=== PATIENT | male | born 1990 | race Caucasian/White ===

== ENCOUNTER 2017-01-19 02:25 | Emergency (ER) | payer OTHER ==
[2017-01-19 02:33] VITALS: TEMP 99.7
[2017-01-19] MEDS ORDERED: ONDANSETRON 4 MG/2 ML VIAL IVP STA (02:57)
[2017-01-19 03:29] LABS: Basophils # (A) 0.1 k/uL (0-0.2); Basophils % (A) 1 %; CH 29.5; CHCM 34.9; Eosinophils # (A) 0.1 k/uL (0-0.7); Eosinophils % (A) 1 %; HCT 47.2 % (39.0-53.0); HGB 16.6 gm/dL (13.0-17.5); Luc # (Auto) 0.16; Luc % (Auto) 2; Lymphocytes % (A) 19 %; MCH 29.8 pg (25.0-35.0); MCHC 35.1 g/dL (31.0-37.0); MCV 84.8 fL (80.0-100.0); Mean Platelet Volume 7.6; Monocytes # (A) 0.4 k/uL (0-1.0); Monocytes % (A) 4 %; Neutrophils # (A) 7.6 k/uL (1.3-7.7); Neutrophils % (A) 73 %; RBC 5.56 m/uL (4.30-5.90); WBC 10.4 k/uL (3.8-10.6); WBC (Perox) 10.72
[2017-01-19] MEDS ORDERED: MORPHINE SULFATE 4 MG/ML SYRINGE IV STA (03:31)
[2017-01-19 03:45] LABS: ALT 68 U/L (21-72); AST 33 U/L (17-59); Alkaline Phosphatase 76 U/L (38-126); Amylase 46 U/L (30-110); Anion Gap 12 mmol/L; Blood Urea Nitrogen 14 mg/dL (9-20); Calcium 9.7 mg/dL (8.4-10.2); Carbon Dioxide 25 mmol/L (22-30); Chloride 104 mmol/L (98-107); Glucose 106 mg/dL (74-99); Non-African American GFR(MDRD) >60 (>60 ml/min/1.73 sqM); Potassium 4.1 mmol/L (3.5-5.1); Sodium 141 mmol/L (137-145); Total Protein 7.2 g/dL (6.3-8.2)
--- NOTE | 2017-01-19 04:21 | CT ---
EXAM: CT Abdomen and Pelvis Without Intravenous Contrast. CLINICAL HISTORY: Reason: Pain TECHNIQUE: Axial computed tomography images of the abdomen and pelvis without intravenous contrast. CTDI is 12 mGy and DLP is 684 mGy-cm. COMPARISON: No relevant prior studies available. FINDINGS: Lower thorax: Minimal atelectasis at the lung bases. ABDOMEN: Liver: Hepatomegaly. Gallbladder and bile ducts: Unremarkable. No calcified stones. No ductal dilation. Pancreas: Unremarkable. No ductal dilation. Spleen: Accessory splenule. Calcified granulomas in the spleen. Adrenals: Unremarkable. No mass. Kidneys and ureters: Unremarkable. No obstructing stones. No hydronephrosis. Stomach and bowel: Low-grade diverticulitis with descending colon/sigmoid diverticulosis, mild bowel wall edema, and trace pericolonic fat stranding. No evidence for perforation or abscess. Appendix: No findings to suggest acute appendicitis. PELVIS: Bladder: Unremarkable. No stones. Reproductive: Unremarkable as visualized. ABDOMEN and PELVIS: Intraperitoneal space: Unremarkable. No free air. No significant fluid collection. Bones/joints: No acute fracture. No dislocation. Soft tissues: Bilateral fat-containing inguinal hernias. Vasculature: Unremarkable. No abdominal aortic aneurysm. Lymph nodes: Unremarkable. No enlarged lymph nodes. IMPRESSION: 1. Low-grade diverticulitis with descending colon/sigmoid diverticulosis, mild bowel wall edema, and trace pericolonic fat stranding. No evidence for perforation or abscess. 2. Hepatomegaly.
[2017-01-19] MEDS ORDERED: metroNIDAZOLE 500 MG TAB PO STA (05:00)
[2017-01-19] MEDS ORDERED: LEVOFLOXACIN 500 MG TAB PO STA (05:00)
--- NOTE | 2017-01-19 05:02 | ED ---
Abdominal Pain HPI - General Chief Complaint: Abdominal Pain Stated Complaint: abd pain Time Seen by Provider: 01/19/17 02:57 Source: patient Mode of arrival: ambulatory Limitations: no limitations - History of Present Illness Initial Comments: This patient is a 26-year-old man who presents to be evaluated for abdominal pain and diarrhea. He notes that his symptoms have been intermittent for up to a couple of months, but they were worse over the past evening. He did have some diarrhea but denied blood or mucus. Complaint: abdominal pain -: week(s) Location: LLQ Radiation: none Migration to: no migration Severity: severe Quality: cramping, aching Consistency: intermittent Improves With: nothing Worsens With: nothing Associated Symptoms: diarrhea - Related Data Previous Rx's Medication Instructions Recorded Ciprofloxacin HCl [Cipro] 500 mg PO Q12HR #14 tablet 01/19/17 Dicyclomine [Bentyl] 20 mg PO QID #15 tablet 01/19/17 metroNIDAZOLE [Flagyl] 500 mg PO TID #21 tab 01/19/17 Allergies Allergy/AdvReac Type Severity Reaction Status Date / Time No Known Allergies Allergy Verified 01/19/17 02:33 Review of Systems ROS Statement: Those systems with pertinent positive or pertinent negative responses have been documented in the HPI. ROS Other: All systems not noted in ROS Statement are negative. Constitutional: Denies: fever, chills Respiratory: Denies: cough, dyspnea Cardiovascular: Denies: chest pain, palpitations, orthopnea, edema Gastrointestinal: Reports: abdominal pain, nausea, diarrhea. Denies: vomiting, constipation, melena, hematochezia Genitourinary: Denies: dysuria, frequency, hematuria Musculoskeletal: Denies: back pain Skin: Denies: rash Neurological: Denies: headache, weakness, numbness Past Medical History Past Medical History: No Reported History History of Any Multi-Drug Resistant Organisms: None Reported Past Surgical History: No Surgical Hx Reported Past Psychological History: No Psychological Hx Reported Smoking Status: Never smoker Past Alcohol Use History: None Reported Past Drug Use History: None Reported General Exam Limitations: no limitations General appearance: alert, in no apparent distress Head exam: Present: atraumatic, normocephalic, normal inspection Eye exam: Present: normal appearance. Absent: scleral icterus, conjunctival injection Neck exam: Present: normal inspection, full ROM Respiratory exam: Present: normal lung sounds bilaterally. Absent: respiratory distress, wheezes, rales, rhonchi, stridor Cardiovascular Exam: Present: regular rate, normal rhythm, normal heart sounds. Absent: systolic murmur, diastolic murmur, rubs, gallop GI/Abdominal exam: Present: soft, tenderness (There is mild left lower quadrant tenderness without rebound or guarding). Absent: distended, guarding, rebound, rigid, normal bowel sounds, mass, bruit, pulsatile mass, hernia Extremities exam: Present: normal inspection, normal capillary refill. Absent: pedal edema, calf tenderness Back exam: Present: normal inspection. Absent: CVA tenderness (R), CVA tenderness (L) Neurological exam: Present: alert Skin exam: Present: warm, dry, intact, normal color. Absent: rash Course Vital Signs 01/19/17 01/19/17 02:30 05:15 Temperature 99.7 F H Pulse Rate 81 82 Respiratory 20 18 Rate Blood Pressure 156/86 141/76 O2 Sat by Pulse 97 97 Oximetry Medical Decision Making - Medical Decision Making Patient is 26-year-old man who has been having some intermittent abdominal pain going on for weeks to months though it has been worse over the past day. Now also having some diarrhea. The patient's workup does reveal what appears to be some diverticulitis. Patient will have course of antibiotics. I did discuss further care and follow-up as well as return parameters. - Lab Data Result diagrams: 01/19/17 03:10 01/19/17 03:10 Lab Results 01/19/17 01/19/17 Range/Units 03:10 03:10 WBC 10.4 (3.8-10.6) k/uL RBC 5.56 (4.30-5.90) m/uL Hgb 16.6 (13.0-17.5) gm/dL Hct 47.2 (39.0-53.0) % MCV 84.8 (80.0-100.0) fL MCH 29.8 (25.0-35.0) pg MCHC 35.1 (31.0-37.0) g/dL RDW 13.0 (11.5-15.5) % Plt Count 217 (150-450) k/uL Neutrophils % 73 % Lymphocytes % 19 % Monocytes % 4 % Eosinophils % 1 % Basophils % 1 % Neutrophils # 7.6 (1.3-7.7) k/uL Lymphocytes # 2.0 (1.0-4.8) k/uL Monocytes # 0.4 (0-1.0) k/uL Eosinophils # 0.1 (0-0.7) k/uL Basophils # 0.1 (0-0.2) k/uL Sodium 141 (137-145) mmol/L Potassium 4.1 (3.5-5.1) mmol/L Chloride 104 (98-107) mmol/L Carbon Dioxide 25 (22-30) mmol/L Anion Gap 12 mmol/L BUN 14 (9-20) mg/dL Creatinine 1.00 (0.66-1.25) mg/dL Est GFR (MDRD) Af Amer >60 (>60 ml/min/1.73 sqM) Est GFR (MDRD) Non-Af >60 (>60 ml/min/1.73 sqM) Glucose 106 H (74-99) mg/dL Calcium 9.7 (8.4-10.2) mg/dL Total Bilirubin 1.0 (0.2-1.3) mg/dL AST 33 (17-59) U/L ALT 68 (21-72) U/L Alkaline Phosphatase 76 (38-126) U/L Total Protein 7.2 (6.3-8.2) g/dL Albumin 4.3 (3.5-5.0) g/dL Amylase 46 (30-110) U/L Lipase 39 (23-300) U/L Disposition Clinical Impression: Diverticulitis Disposition: HOME SELF-CARE Condition: Good Instructions: Diverticulitis (ED) Prescriptions: Ciprofloxacin HCl [Cipro] 500 mg PO Q12HR #14 tablet Dicyclomine [Bentyl] 20 mg PO QID #15 tablet metroNIDAZOLE [Flagyl] 500 mg PO TID #21 tab Referrals: None,Stated [Primary Care Provider] - 1-2 days Sky Staples DO [STAFF PHYSICIAN] - 1-2 days
[2017-01-19 05:16] VITALS: BP 141/76; PULSE 82; RESP 18
== END 2017-01-19 05:15 | disposition home or self-care (01) ==
LOC: EC 02:25
DX: K57.92 Diverticulitis of intestine, part unspecified, without perforation or abscess without bleeding (principal)
CPT/HCPCS: 36415; 80053; 82150; 83690; 85025; 74176; 99284; 96374; 96375; J2270; J2405

== ENCOUNTER 2017-01-29 17:30 | Emergency (ER) | payer OTHER ==
[2017-01-29 17:42] VITALS: TEMP 98.4
[2017-01-29] MEDS ORDERED: metroNIDAZOLE-NS PMX 500 MG in SALINE 1 100ML.BAG IVPB STA (19:25)
[2017-01-29] MEDS ORDERED: MORPHINE SULFATE 4 MG/ML SYRINGE IV STA (19:25)
[2017-01-29] MEDS ORDERED: SODIUM CHLORIDE 0.9% 500 ML IV STA (19:25)
[2017-01-29 20:03] LABS: Basophils % (A) 1 %; CH 29.1; CHCM 34.2; Eosinophils # (A) 0.1 k/uL (0-0.7); Eosinophils % (A) 1 %; HCT 52.5 % (39.0-53.0); HDW 2.88; Luc # (Auto) 0.12; Luc % (Auto) 2; Lymphocytes # (A) 2.1 k/uL (1.0-4.8); Lymphocytes % (A) 29 %; MCH 29.3 pg (25.0-35.0); MCHC 34.2 g/dL (31.0-37.0); MCV 85.5 fL (80.0-100.0); Mean Platelet Volume 6.9; Monocytes # (A) 0.4 k/uL (0-1.0); Monocytes % (A) 5 %; Neutrophils # (A) 4.3 k/uL (1.3-7.7); Neutrophils % (A) 62 %; RBC 6.14 m/uL (4.30-5.90); RDW 12.8 % (11.5-15.5); WBC (Perox) 7.04
[2017-01-29 20:14] LABS: ALT 83 U/L (21-72); AST 48 U/L (17-59); Alkaline Phosphatase 79 U/L (38-126); Anion Gap 14 mmol/L; Blood Urea Nitrogen 13 mg/dL (9-20); Calcium 10.6 mg/dL (8.4-10.2); Carbon Dioxide 26 mmol/L (22-30); Chloride 102 mmol/L (98-107); Glucose 87 mg/dL (74-99); Non-African American GFR(MDRD) >60 (>60 ml/min/1.73 sqM); Potassium 4.9 mmol/L (3.5-5.1); Sodium 142 mmol/L (137-145); Total Bilirubin 1.1 mg/dL (0.2-1.3); Total Protein 8.5 g/dL (6.3-8.2)
--- NOTE | 2017-01-29 21:01 | CT ---
EXAMINATION TYPE: CT abdomen pelvis w con DATE OF EXAM: 01/29/2017 8:46 PM COMPARISON: 01/19/2017 HISTORY: Left sided abdominal pain. CT DLP: 1774.00 mGycm Automated exposure control for dose reduction was used. TECHNIQUE: Helical acquisition of images was performed from the lung bases through the pelvis. CONTRAST: Performed without Oral Contrast and with IV Contrast, patient injected with 100 mL of Omnipaque 300. FINDINGS: Lung bases are clear of consolidation. There is no pleural effusion. Liver spleen pancreas gallbladde r appear normal. Bile ducts are not dilated. There is no adrenal mass. Kidneys show satisfactory cont rast opacification. There is no hydronephrosis. I see no intestinal wall thickening. There are no dilated loops. Appendix appears normal. Appendix is partly filled with air. Bladder distends smoothly. There is no sign of a pelvic mass. There are mild bilateral inguinal hernias that contain omental fat. I see no bony destructive process. There are a few sigmoid diverticula. I see no evidence of diverticulitis. There is very minimal fat stranding inf erior to the appendix in the right lower quadrant. The significance of this is not clear. IMPRESSION: THERE ARE SOME MINIMAL INFLAMMATORY CHANGES IN THE RIGHT LOWER QUADRANT INFERIOR TO THE APPENDIX AND CECUM THAT ARE STABLE COMPARED TO 01/19/2017. MILD COLONIC DIVERTICULOSIS WITHOUT EVIDENCE OF DIVERTIC ULITIS. MILD BILATERAL INGUINAL HERNIAS CONTAINING OMENTAL FAT. I DO NOT SEE A CAUSE FOR LEFT-SIDED P AIN.
[2017-01-29 21:20] VITALS: BP 136/65; PULSE 75; RESP 16
--- NOTE | 2017-01-29 21:20 | ED ---
Abdominal Pain HPI - General Chief Complaint: Abdominal Pain Stated Complaint: Abd pain Time Seen by Provider: 01/29/17 19:11 Source: patient Mode of arrival: ambulatory Limitations: no limitations - History of Present Illness Initial Comments: Patient complains of abdominal pain. He was recently diagnosed with diverticulitis. He states he did not fill his prescription for antibiotics. He states the belly pain is getting worse now. The pain is in the left side. Nothing makes it better or worse. He has no chest pain, back pain, lightheadedness or dizziness. He has no blood in the stool. He has no black or tarry stool. He denies any injuries or weakness. - Related Data Home Medications Medication Instructions Recorded Confirmed Acetaminophen [Tylenol] 1,000 mg PO DAILY PRN 01/29/17 01/29/17 Allergies Allergy/AdvReac Type Severity Reaction Status Date / Time No Known Allergies Allergy Verified 01/29/17 19:29 Review of Systems ROS Statement: Those systems with pertinent positive or pertinent negative responses have been documented in the HPI. ROS Other: All systems not noted in ROS Statement are negative. Past Medical History Past Medical History: No Reported History History of Any Multi-Drug Resistant Organisms: None Reported Past Surgical History: No Surgical Hx Reported Past Psychological History: No Psychological Hx Reported Smoking Status: Never smoker Past Alcohol Use History: Occasional Past Drug Use History: None Reported General Exam Limitations: no limitations General appearance: alert, in no apparent distress Head exam: Present: atraumatic, normocephalic, normal inspection Eye exam: Present: normal appearance, PERRL, EOMI. Absent: scleral icterus, conjunctival injection, periorbital swelling ENT exam: Present: normal exam, mucous membranes moist Neck exam: Present: normal inspection. Absent: tenderness, meningismus, lymphadenopathy Respiratory exam: Present: normal lung sounds bilaterally. Absent: respiratory distress, wheezes, rales, rhonchi, stridor Cardiovascular Exam: Present: regular rate, normal rhythm, normal heart sounds. Absent: systolic murmur, diastolic murmur, rubs, gallop, clicks GI/Abdominal exam: Present: soft, tenderness, normal bowel sounds. Absent: distended, guarding, rebound, rigid Extremities exam: Present: normal inspection, full ROM, normal capillary refill. Absent: tenderness, pedal edema, joint swelling, calf tenderness Back exam: Present: normal inspection Neurological exam: Present: alert, oriented X3, CN II-XII intact Psychiatric exam: Present: normal affect, normal mood Skin exam: Present: warm, dry, intact, normal color. Absent: rash Course Vital Signs 01/29/17 17:38 Temperature 98.4 F Pulse Rate 86 Respiratory 18 Rate Blood Pressure 138/79 O2 Sat by Pulse 97 Oximetry Medical Decision Making - Medical Decision Making Patient complains of abdominal pain. His laboratory studies are normal. CT reveals resolving diverticulitis, and no evidence of appendicitis this time. Patient was given IV antibiotics here. He is feeling better. I encouraged him to fill the prescription for antibiotics. I told him that if he does not feel his prescriptions his diverticulitis could come back, and he will likely wind up with a bowel perforation. I also explained to him that he has inflammatory changes near the appendix which could turn into an appendicitis. He verbalized understanding of this information. He should return to the ER immediately if his symptoms return, worsen, or if he develops any other problems or complaints. - Lab Data Result diagrams: 01/29/17 19:31 01/29/17 19:31 Lab Results 01/29/17 01/29/17 Range/Units 19:31 19:31 WBC 7.0 (3.8-10.6) k/uL RBC 6.14 H (4.30-5.90) m/uL Hgb 18.0 H (13.0-17.5) gm/dL Hct 52.5 (39.0-53.0) % MCV 85.5 (80.0-100.0) fL MCH 29.3 (25.0-35.0) pg MCHC 34.2 (31.0-37.0) g/dL RDW 12.8 (11.5-15.5) % Plt Count 270 (150-450) k/uL Neutrophils % 62 % Lymphocytes % 29 % Monocytes % 5 % Eosinophils % 1 % Basophils % 1 % Neutrophils # 4.3 (1.3-7.7) k/uL Lymphocytes # 2.1 (1.0-4.8) k/uL Monocytes # 0.4 (0-1.0) k/uL Eosinophils # 0.1 (0-0.7) k/uL Basophils # 0.0 (0-0.2) k/uL Sodium 142 (137-145) mmol/L Potassium 4.9 (3.5-5.1) mmol/L Chloride 102 (98-107) mmol/L Carbon Dioxide 26 (22-30) mmol/L Anion Gap 14 mmol/L BUN 13 (9-20) mg/dL Creatinine 1.00 (0.66-1.25) mg/dL Est GFR (MDRD) Af Amer >60 (>60 ml/min/1.73 sqM) Est GFR (MDRD) Non-Af >60 (>60 ml/min/1.73 sqM) Glucose 87 (74-99) mg/dL Calcium 10.6 H (8.4-10.2) mg/dL Total Bilirubin 1.1 (0.2-1.3) mg/dL AST 48 (17-59) U/L ALT 83 H (21-72) U/L Alkaline Phosphatase 79 (38-126) U/L Total Protein 8.5 H (6.3-8.2) g/dL Albumin 5.1 H (3.5-5.0) g/dL Lipase 43 (23-300) U/L Disposition Clinical Impression: Diverticulitis Disposition: HOME SELF-CARE Condition: Good Instructions: Diverticulitis (ED) Referrals: None,Stated [Primary Care Provider] - 1-2 days Montse Conway MD [STAFF PHYSICIAN] - 1-2 days Time of Disposition: 21:20
== END 2017-01-29 21:29 | disposition home or self-care (01) ==
LOC: EC 17:30
DX: K57.92 Diverticulitis of intestine, part unspecified, without perforation or abscess without bleeding (principal); K57.30 Diverticulosis of large intestine without perforation or abscess without bleeding; K40.20 Bilateral inguinal hernia, without obstruction or gangrene, not specified as recurrent; Z79.899 Other long term (current) drug therapy
CPT/HCPCS: 36415; 80053; 83690; 85025; 74177; 99284; 96365; 96375; 96367; J2270; J0696; Q9967

== ENCOUNTER 2017-05-31 19:48 | Emergency (ER) | payer OTHER ==
[2017-05-31 20:18] VITALS: RESP 18
--- NOTE | 2017-05-31 21:19 | ED ---
Skin/Abscess/FB HPI - General Chief complaint: Skin/Abscess/Foreign Body Stated complaint: Cellulitis sent by ME Time Seen by Provider: 05/31/17 20:57 Source: patient Mode of arrival: ambulatory Limitations: no limitations - History of Present Illness Initial comments: This patient is a 26-year-old man who presents with complaint of having what he believes is cellulitis to his buttocks. The patient states that he started having symptoms on Thursday. He noticed that there was a little bit of swelling at the gluteal cleft and a little bit of tenderness when he was sitting there. He states that over the next few days he had an increase in the swelling. He states that his convinced him to be seen at [facility] today and they felt he had cellulitis and sent him here after given him a shot of Rocephin. The patient states that he has not had fevers at home but noted 1 just before arrival here. He denies palpitations, chest pain, dyspnea, or other systemic symptoms. MD complaint: abscess/boil Onset/Timin -: days(s) Tetanus Up to Date: yes Location: buttocks Severity: moderate Quality: aching Consistency: constant Improves with: none Worsens with: palpation Context: none Associated symptoms: fever - Related Data Previous Rx's Medication Instructions Recorded Acetaminophen-Codeine 300-30mg 1 tab PO Q4H PRN #16 tablet 05/31/17 [Tylenol w/codeine #3] Sulfamethox-Tmp 800-160Mg [Bactrim 2 each PO Q12HR #28 tab 05/31/17 Ds] Allergies Allergy/AdvReac Type Severity Reaction Status Date / Time No Known Allergies Allergy Verified 05/31/17 20:17 Review of Systems ROS Statement: Those systems with pertinent positive or pertinent negative responses have been documented in the HPI. ROS Other: All systems not noted in ROS Statement are negative. Constitutional: Reports: as per HPI, fever. Denies: chills Respiratory: Denies: dyspnea Cardiovascular: Denies: chest pain, palpitations, syncope Gastrointestinal: Denies: abdominal pain, diarrhea, constipation Musculoskeletal: Denies: back pain Skin: Reports: as per HPI, lesions Hematological/Lymphatic: Denies: easy bleeding Past Medical History Past Medical History: No Reported History History of Any Multi-Drug Resistant Organisms: None Reported Past Surgical History: No Surgical Hx Reported Past Psychological History: No Psychological Hx Reported Smoking Status: Never smoker Past Alcohol Use History: Occasional Past Drug Use History: None Reported General Exam Limitations: no limitations General appearance: alert, in no apparent distress Respiratory exam: Present: normal lung sounds bilaterally. Absent: respiratory distress, wheezes, rales, rhonchi, stridor Cardiovascular Exam: Present: regular rate, normal rhythm, normal heart sounds. Absent: systolic murmur, diastolic murmur, rubs, gallop Skin exam: Present: warm, dry, intact, erythema, other (Patient has erythema overlying the gluteal cleft and proximally 5 cm diameter area of fluctuance consistent with pilonidal cyst, which does appear to be coming to a point though there is not yet drainage. There does not appear to be any perianal swelling or tenderness. ) Course Vital Signs 05/31/17 20:14 Temperature 100.5 F H Pulse Rate 91 Respiratory 18 Rate Blood Pressure 130/73 O2 Sat by Pulse 98 Oximetry Medical Decision Making - Medical Decision Making I had a discussion with the patient and his regarding treatment options. They request that if it is all possible to attempt a bedside drainage here so that he can go home as they are expecting a child on Thursday. He requests not to be admitted for surgical treatment if that is at all possible. I discussed that we will attempt to do a bedside incision and drainage and if there is a favorable result he may reveal to follow-up with surgery, though depending how this goes he may require admission. Disposition Clinical Impression: Pilonidal cyst with abscess Disposition: HOME SELF-CARE Condition: Good Instructions: Abscess Incision and Drainage (ED) Prescriptions: Acetaminophen-Codeine 300-30mg [Tylenol w/codeine #3] 1 tab PO Q4H PRN #16 tablet PRN Reason: Pain Sulfamethox-Tmp 800-160Mg [Bactrim Ds] 2 each PO Q12HR #28 tab Referrals: None,Stated [Primary Care Provider] - 1-2 days Melia Baker DO [Doctor of Osteopathic Medicine] - 1-2 days
[2017-05-31] MEDS ORDERED: HYDROcodone/APAP 5-325MG 1 EACH TAB PO STA (21:42)
[2017-05-31] MEDS ORDERED: IBUPROFEN 400 MG TAB PO STA (21:43)
[2017-05-31 22:50] VITALS: BP 119/74; PULSE 90; TEMP 98.7
== END 2017-05-31 22:50 | disposition home or self-care (01) ==
LOC: EC 19:48
DX: L05.01 Pilonidal cyst with abscess (principal)
CPT/HCPCS: 99283